=== PATIENT | male | born 1990 | race American Indian/Alaskan Native ===

== ENCOUNTER 2018-01-02 16:08 | Emergency (ER) | payer SELFPAY ==
[2018-01-02] MEDS ORDERED: MORPHINE 4 MG/ML SYR ONE ×2 (17:41→18:22)
[2018-01-02] MEDS ORDERED: ONDANSETRON 4 MG/2 ML VIAL ONE (17:42)
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
[2018-01-02] MEDS ORDERED: HYDROMORPHONE HCL 0.5 MG/0.5 ML INJ ONE (19:29)
[2018-01-02] MEDS ORDERED: DEXAMETHASONE 10 MG/ML VIAL ONE (19:40)
[2018-01-02] MEDS ORDERED: CLINDAMYCIN HCL 150 MG CAP ONE (19:40)
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
== END 2018-01-02 20:11 | disposition home or self-care (01) ==
LOC: ER 16:08
DX: S02.609A Fracture of mandible, unspecified, initial encounter for closed fracture (principal); W50.0XXA Accidental hit or strike by another person, initial encounter; Y93.9 Activity, unspecified; Y92.9 Unspecified place or not applicable
CPT/HCPCS: 70450; 70486; 72125; 76377; 96374; 96375; 99284; J1100; J1170; J2405

== ENCOUNTER 2022-04-05 22:01 | Emergency (ER) | payer SELFPAY ==
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
[2022-04-05] MEDS ORDERED: ACETAMINOPHEN 325 MG TABLET ONE (22:56)
[2022-04-05] MEDS ORDERED: AMOX/K CLAV 875 MG TAB ONE (22:57)
[2022-04-05] MEDS ORDERED: HYDROCODONE/APAP 7.5/325 MG TAB ONE (22:58)
[2022-04-05] MEDS ORDERED: IBUPROFEN 400 MG TAB ONE (22:58)
[2022-04-05 23:51] LABS: SARS-COV-2 RT PCR NEGATIVE (NEGATIVE)
--- NOTE | 2022-04-06 00:10 | EDPHYS ---
Physician Documentation [facility] Name: Kavon Monsalve Age: 31 yrs Sex: Male : 1990 Arrival Date: 04/05/2022 Time: 22:04 Bed 17 Private MD: ED Physician Drake Gao HPI: 04/05 23:00 This 31 yrs old Male presents to ER via Ambulatory with complaints of Toothache. cp 23:00 The patient presents with pain. The problem is located in the left lower jaw. Onset: cp The symptoms/episode began/occurred suddenly, this morning. Duration: The symptoms are continuous, and are steadily getting worse. 23:00 Associated signs and symptoms: Pertinent positives: fever, body aches. Patient also cp reports close contact with COVID-19 positive co-worker. Patient admits to not being vaccinated and would like to be tested. Historical: - Allergies: 22:25 NKDA; kb3 - Home Meds: 22:25 None [Active]; kb3 - PMHx: 22:25 None; kb3 - PSHx: 22:25 None; kb3 - Immunization history:: Adult Immunizations up to date, Client reports having NOT received the Covid vaccine. Last tetanus immunization: up to date. - Social history:: Smoking status: Patient reports the use of cigarette tobacco products, smokes one-half pack cigarettes per day. ROS: 23:05 Constitutional: Positive for body aches, Negative for fever, poor PO intake. cp 23:05 Eyes: Negative for injury, pain, redness, and discharge. cp 23:05 ENT: Positive for dental pain, Negative for drainage from ear(s), ear pain, sore throat, difficulty swallowing, difficulty handling secretions. 23:05 Neck: Negative for pain with movement, pain at rest, stiffness. 23:05 Respiratory: Negative for cough, shortness of breath, wheezing. 23:05 Abdomen/GI: Negative for abdominal pain, vomiting, diarrhea, constipation. 23:05 Skin: Negative for rash. 23:05 Neuro: Negative for altered mental status, dizziness, weakness. 23:05 All other systems are negative. Exam: 23:10 Constitutional: The patient appears in no acute distress, alert, awake, non-toxic, well cp developed, well nourished, in obvious pain, uncomfortable. 23:10 Head/Face: Normocephalic, atraumatic. cp 23:10 Eyes: Periorbital structures: appear normal, Conjunctiva: normal, no exudate, no injection, Sclera: no appreciated abnormality, Lids and lashes: appear normal, bilaterally. 23:10 ENT: External ear(s): are unremarkable, Ear canal(s): are normal, clear, TM's: erythema, that is moderate, bilaterally, Nose: is normal, Mouth: Lips: moist, Oral mucosa: pink and intact, moist, Gums: swollen, on the left lower back molar, Tongue: is normal, abscess, is not appreciated, Posterior pharynx: Airway: no evidence of obstruction, patent, Uvula: midline, swelling, is not appreciated, erythema, is not appreciated, exudate, is not appreciated. 23:10 Neck: ROM/movement: is normal, is supple, without pain, no range of motions limitations, no meningismus. 23:10 Chest/axilla: Inspection: normal. 23:10 Cardiovascular: Rate: normal, Rhythm: regular. 23:10 Respiratory: the patient does not display signs of respiratory distress, Respirations: normal, no use of accessory muscles, no retractions, labored breathing, is not present, Breath sounds: are clear throughout, no decreased breath sounds, no stridor, no wheezing. 23:10 Abdomen/GI: Inspection: abdomen appears normal, Palpation: abdomen is soft and non-tender, in all quadrants. 23:10 Skin: cellulitis, is not appreciated, no rash present. 23:10 Neuro: Orientation: to person, place \T\ time. Mentation: is normal, Cerebellar function: is grossly normal, Motor: moves all fours, strength is normal, Sensation: is normal. Vital Signs: 22:24 BP 140 / 85; Pulse 94; Resp 20; Temp 98.6; Pulse Ox 98% ; Weight 111.13 kg; Height 5 kb3 ft. 10 in. (177.80 cm); Pain 10/10; 22:28 BP 127 / 91; Pulse 92; Resp 20 S; Pulse Ox 99% on R/A; ha1 23:20 BP 118 / 83; Pulse 85; Resp 16 S; Pulse Ox 98% on R/A; ha1 04/06 00:20 BP 116 / 80; Pulse 82; Resp 16 S; Pulse Ox 99% on R/A; ha1 04/05 22:24 Body Mass Index 35.15 (111.13 kg, 177.80 cm) kb3 MDM: 04/05 22:25 Patient medically screened. cp 04/06 00:09 Data reviewed: vital signs, nurses notes, lab test result(s). cp 00:09 Differential diagnosis: dental caries, dental abscess, fractured tooth. I considered cp the following discharge prescriptions or medication management in the emergency department Medications were administered in the Emergency Department. See MAR. Test considered but Not performed: Other Details CT facial bones. Care significantly affected by the following Social Determinants of Health: Poor access to healthcare and/or lack of insurance. Counseling: I had a detailed discussion with the patient and/or guardian regarding: the historical points, exam findings, and any diagnostic results supporting the discharge/admit diagnosis, lab results, the need for outpatient follow up, for definitive care, a dentist, to return to the emergency department if symptoms worsen or persist or if there are any questions or concerns that arise at home. Response to treatment: the patient's symptoms have markedly improved after treatment, and as a result, I will discharge patient. 04/05 22:47 Order name: COVID-19/FLU A+B; Complete Time: 00:09 cp Administered Medications: 04/05 22:55 Drug: Ibuprofen 800 mg Route: PO; ha1 23:20 Follow up: Response: No adverse reaction; Pain is decreased ha1 22:56 Drug: Hydrocodone-Acetaminophen (7.5 mg-325 mg) 1 tabs Route: PO; ha1 23:20 Follow up: Response: No adverse reaction; Pain is decreased; RASS: Alert and Calm (0) ha1 22:57 Drug: Tylenol 650 mg Route: PO; ha1 23:20 Follow up: Response: No adverse reaction ha1 22:58 Drug: Augmentin (Amoxicillin-Clavulanate) 875 mg Route: PO; ha1 23:20 Follow up: Response: No adverse reaction ha1 Disposition Summary: 04/06/22 00:09 Discharge Ordered Location: Home cp Problem: new cp Symptoms: have improved cp Condition: Stable cp Diagnosis - Disorder of teeth and supporting structures, unspecified cp - Otitis media, unspecified, bilateral cp Followup: cp - With: Private Physician - When: 1 - 2 days - Reason: Worsening of condition Discharge Instructions: - Discharge Summary Sheet cp - Dental Pain cp - Otitis Media, Adult cp Forms: - Medication Reconciliation Form cp - Thank You Letter cp - Antibiotic Education cp - Prescription Opioid Use cp - Work release form ha1 Prescriptions: - Augmentin 875-125 mg Oral Tablet - take 1 tablet by ORAL route every 12 hours for 10 days; 20 tablet; Refills: 0, cp Product Selection Permitted - Diclofenac Sodium 75 mg Oral Tablet Sustained Release - take 1 tablet by ORAL route 2 times per day; 30 tablet; Refills: 0, Product cp Selection Permitted Signatures: Dispatcher [employer] EDMS Flavio Mchugh PA PA cp Carrol Woodard RN RN ha1 Bailey Pretty RN RN kb3 Corrections: (The following items were deleted from the chart) 04/06 23:55 04/05 23:00 Onset: The symptoms/episode began/occurred suddenly, today, cp cp
--- NOTE | 2022-04-06 00:10 | ER ---
Nurse's Notes [facility] Name: Kavon Monsalve Age: 31 yrs Sex: Male : 1990 Arrival Date: 04/05/2022 Time: 22:04 Bed 17 Private MD: Diagnosis: Disorder of teeth and supporting structures, unspecified;Otitis media, unspecified, bilateral Presentation: 04/05 22:24 Chief complaint: Patient states: sudden onset of left lower jaw and gum pain since kb3 10:30 this morning. Denies injury, carious or broken teeth. Coronavirus screen: Vaccine status: Patient reports being unvaccinated. Client denies travel out of the [place] in the last 14 days. Ebola Screen: Patient negative for fever greater than or equal to 101.5 degrees Fahrenheit, and additional compatible Ebola Virus Disease symptoms Patient denies exposure to infectious person. Patient denies travel to an Ebola-affected area in the 21 days before illness onset. No symptoms or risks identified at this time. Initial Sepsis Screen: Does the patient meet any 2 criteria? No. Patient's initial sepsis screen is negative. Does the patient have a suspected source of infection? No. Patient's initial sepsis screen is negative. Risk Assessment: Do you want to hurt yourself or someone else? Patient reports no desire to harm self or others. Onset of symptoms was April 05, 2022 at 10:30. 22:24 Method Of Arrival: Ambulatory kb3 22:24 Acuity: KATHIE 4 kb3 Triage Assessment: 22:25 General: Appears uncomfortable, Behavior is calm, cooperative. Pain: Complains of pain kb3 in left jaw Pain does not radiate. Pain currently is 10 out of 10 on a pain scale. Quality of pain is described as aching, sharp, throbbing, Pain began suddenly. EENT: Reports pain in left jaw. Historical: - Allergies: 22:25 NKDA; kb3 - Home Meds: 22:25 None [Active]; kb3 - PMHx: 22:25 None; kb3 - PSHx: 22:25 None; kb3 - Immunization history:: Adult Immunizations up to date, Client reports having NOT received the Covid vaccine. Last tetanus immunization: up to date. - Social history:: Smoking status: Patient reports the use of cigarette tobacco products, smokes one-half pack cigarettes per day. Screenin:30 [facility] ED Fall Risk Assessment (Adult) History of falling in the last 3 months, ha1 including since admission No falls in past 3 months (0 pts) Confusion or Disorientation No (0 pts) Intoxicated or Sedated No (0 pts) Impaired Gait No (0 pts) Mobility Assist Device Used No (0 pt) Altered Elimination No (0 pt) Score/Fall Risk Level 0 - 2 = Low Risk Oriented to surroundings, Maintained a safe environment, Educated pt \T\ family on fall prevention, incl call for assistance when getting out of bed. Abuse screen: Denies threats or abuse. Denies injuries from another. Nutritional screening: No deficits noted. Tuberculosis screening: No symptoms or risk factors identified. Assessment: 22:26 General: Appears uncomfortable, Behavior is cooperative. Pain: Complains of pain in ha1 left lower jaw Pain does not radiate. Pain currently is 10 out of 10 on a pain scale. Pain began suddenly, 4 hours ago. Alleviated by medications. Neuro: Level of Consciousness is awake, alert, obeys commands, Oriented to person, place, time, situation. Cardiovascular: Capillary refill < 3 seconds Patient's skin is warm and dry. Respiratory: Reports Airway is patent Respiratory effort is even, unlabored, Respiratory pattern is regular, symmetrical. GI: No signs and/or symptoms were reported involving the gastrointestinal system. Abdomen is flat, non-distended. : No signs and/or symptoms were reported regarding the genitourinary system. EENT:. Derm: Skin is pink, warm \T\ dry. Musculoskeletal: Circulation, motion, and sensation intact. Range of motion: intact in all extremities, Reports body ache. 23:20 Reassessment: Patient and/or family updated on plan of care and expected duration. Pain ha1 level reassessed. Patient is alert, oriented x 3, equal unlabored respirations, skin warm/dry/pink. pain 2/10 Patient states feeling better. 04/06 00:20 Reassessment: Patient and/or family updated on plan of care and expected duration. Pain ha1 level reassessed. Patient is alert, oriented x 3, equal unlabored respirations, skin warm/dry/pink. Patient states feeling better. Patient states symptoms have improved. Vital Signs: 04/05 22:24 BP 140 / 85; Pulse 94; Resp 20; Temp 98.6; Pulse Ox 98% ; Weight 111.13 kg; Height 5 kb3 ft. 10 in. (177.80 cm); Pain 10/10; 22:28 BP 127 / 91; Pulse 92; Resp 20 S; Pulse Ox 99% on R/A; ha1 23:20 BP 118 / 83; Pulse 85; Resp 16 S; Pulse Ox 98% on R/A; ha1 04/06 00:20 BP 116 / 80; Pulse 82; Resp 16 S; Pulse Ox 99% on R/A; ha1 04/05 22:24 Body Mass Index 35.15 (111.13 kg, 177.80 cm) kb3 ED Course: 04/05 22:04 Patient arrived in ED. ag3 22:05 Flavio Mchugh PA is PHCP. cp 22:05 Drake Gao MD is Attending Physician. cp 22:25 Triage completed. kb3 22:25 Arm band placed on right wrist. kb3 22:26 Carrol Woodard, RAAD is Primary Nurse. ha1 22:30 Patient has correct armband on for positive identification. Bed in low position. Call ha1 light in reach. Side rails up X 1. 23:03 COVID-19/FLU A+B Sent. ha1 04/06 00:24 No provider procedures requiring assistance completed. Patient did not have IV access ha1 during this emergency room visit. Administered Medications: 04/05 22:55 Drug: Ibuprofen 800 mg Route: PO; ha1 23:20 Follow up: Response: No adverse reaction; Pain is decreased ha1 22:56 Drug: Hydrocodone-Acetaminophen (7.5 mg-325 mg) 1 tabs Route: PO; ha1 23:20 Follow up: Response: No adverse reaction; Pain is decreased; RASS: Alert and Calm (0) ha1 22:57 Drug: Tylenol 650 mg Route: PO; ha1 23:20 Follow up: Response: No adverse reaction ha1 22:58 Drug: Augmentin (Amoxicillin-Clavulanate) 875 mg Route: PO; ha1 23:20 Follow up: Response: No adverse reaction ha1 Medication: 04/06 00:25 VIS not applicable for this client. ha1 Outcome: 00:09 Discharge ordered by . cp 00:25 Discharged to home ambulatory. ha1 00:25 Condition: stable 00:25 Discharge instructions given to patient, Instructed on discharge instructions, follow up and referral plans. medication usage, Demonstrated understanding of instructions, follow-up care, medications, Prescriptions given X 2. 00:25 Patient left the ED. ha1 Signatures: Flavio Mchugh PA PA cp Gomez, Alice ag3 Carrol Woodard RN RN ha1 Bailey Pretty RN RN kb3 Corrections: (The following items were deleted from the chart) 04/05 23:04 22:26 Respiratory: Airway is patent Respiratory effort is even, unlabored, Respiratory ha1 pattern is regular, symmetrical, ha1 23:04 22:26 Musculoskeletal: Circulation, motion, and sensation intact. Range of motion: ha1 intact in all extremities, ha1
[2022-04-06 00:42] VITALS: TEMP 98.6
[2022-04-06 00:45] VITALS: BP 116/80; O2SAT 99
== END 2022-04-06 00:25 | disposition home or self-care (01) ==
LOC: ER 22:01
DX: H66.93 Otitis media, unspecified, bilateral (principal); K08.9 Disorder of teeth and supporting structures, unspecified; F17.210 Nicotine dependence, cigarettes, uncomplicated; Z20.822 Contact with and (suspected) exposure to COVID-19
CPT/HCPCS: 0240U; 99283

== ENCOUNTER 2022-04-28 02:00 | Emergency (ER) | payer SELFPAY ==
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
--- NOTE | 2022-04-28 02:35 | EDPHYS ---
Physician Documentation [facility] Name: Kavon Monsalve Age: 31 yrs Sex: Male : 1990 Arrival Date: 04/28/2022 Time: 02:04 Bed 15 Private MD: ED Physician Flavio Holm HPI: 04/28 02:29 This 31 yrs old Male presents to ER via Unassigned with complaints of Anxiety. jo 02:29 The patient presents with a history of heart racing. Context: The symptoms occur at jo rest. Onset: The symptoms/episode began/occurred just prior to arrival. Duration: The patient or guardian reports a single episode, that is still ongoing. Modifying factors: The symptoms are aggravated by. Associated signs and symptoms: The patient has no apparent associated signs or symptoms. Severity of symptoms: At their worst the symptoms were mild in the emergency department the symptoms are unchanged. The patient has not experienced similar symptoms in the past. Historical: - Allergies: 02:33 NKDA; as6 - Home Meds: 02:33 None [Active]; as6 - PMHx: 02:33 Anxiety; as6 - PSHx: 02:33 None; as6 - Immunization history:: Client reports having NOT received the Covid vaccine. - Social history:: Smoking status: Reported history of juuling and/or vaping. - Family history:: not pertinent. ROS: 02:29 Constitutional: Negative for fever, chills, and weight loss, Eyes: Negative for injury, jo pain, redness, and discharge, ENT: Negative for injury, pain, and discharge, Neck: Negative for injury, pain, and swelling, Respiratory: Negative for shortness of breath, cough, wheezing, and pleuritic chest pain, Abdomen/GI: Negative for abdominal pain, nausea, vomiting, diarrhea, and constipation, Back: Negative for injury and pain, : Negative for injury, bleeding, discharge, and swelling, MS/Extremity: Negative for injury and deformity, Skin: Negative for injury, rash, and discoloration, Neuro: Negative for headache, weakness, numbness, tingling, and seizure. 02:29 Cardiovascular: Positive for palpitations. Exam: 02:29 Constitutional: This is a well developed, well nourished patient who is awake, alert, jo and in no acute distress. Head/Face: Normocephalic, atraumatic. Eyes: Pupils equal round and reactive to light, extra-ocular motions intact. Lids and lashes normal. Conjunctiva and sclera are non-icteric and not injected. Cornea within normal limits. Periorbital areas with no swelling, redness, or edema. ENT: Nares patent. No nasal discharge, no septal abnormalities noted. Tympanic membranes are normal and external auditory canals are clear. Oropharynx with no redness, swelling, or masses, exudates, or evidence of obstruction, uvula midline. Mucous membranes moist. Neck: Trachea midline, no thyromegaly or masses palpated, and no cervical lymphadenopathy. Supple, full range of motion without nuchal rigidity, or vertebral point tenderness. No Meningismus. Chest/axilla: Normal chest wall appearance and motion. Nontender with no deformity. No lesions are appreciated. Respiratory: Lungs have equal breath sounds bilaterally, clear to auscultation and percussion. No rales, rhonchi or wheezes noted. No increased work of breathing, no retractions or nasal flaring. Abdomen/GI: Soft, non-tender, with normal bowel sounds. No distension or tympany. No guarding or rebound. No evidence of tenderness throughout. Back: No spinal tenderness. No costovertebral tenderness. Full range of motion. Male : Normal genitalia with no discharge or lesions. Skin: Warm, dry with normal turgor. Normal color with no rashes, no lesions, and no evidence of cellulitis. MS/ Extremity: Pulses equal, no cyanosis. Neurovascular intact. Full, normal range of motion. Neuro: Awake and alert, GCS 15, oriented to person, place, time, and situation. Cranial nerves II-XII grossly intact. Motor strength 5/5 in all extremities. Sensory grossly intact. Cerebellar exam normal. Normal gait. Psych: Awake, alert, with orientation to person, place and time. Behavior, mood, and affect are within normal limits. 02:29 Cardiovascular: Rate: normal, Rhythm: regular, Pulses: Pulses are 4+ in bilateral radial, brachial, femoral, popliteal, posterior tibial and and dorsalis pedis arteries.. Heart sounds: normal, normal S1and S2, no S3 or S4, no murmur, no rub, no gallop, Edema: is not appreciated, JVD: is not appreciated. Vital Signs: 02:34 BP 149 / 85; Pulse 99; Resp 18 S; Temp 98.4(O); Pulse Ox 100% on R/A; Weight 106.59 kg as6 (R); Height 5 ft. 10 in. (177.80 cm) (R); Pain 0/10; 02:34 Body Mass Index 33.72 (106.59 kg, 177.80 cm) as6 MDM: 02:25 Patient medically screened. jo 02:33 Differential diagnosis: arrythmia, dehydration, stress disorder. Data reviewed: vital jo signs, nurses notes. Consideration of Admission/Observation Patient was admitted/placed on observation. I considered the following discharge prescriptions or medication management in the emergency department Medications were administered in the Emergency Department. See MAR. Test considered but Not performed: EKG: ekg, labs, cxr. Care significantly affected by the following chronic conditions: none. Administered Medications: 02:40 Drug: Ativan (LORazepam) 2 mg Route: PO; as6 02:42 Follow up: Response: No adverse reaction as6 Disposition Summary: 04/28/22 02:35 Discharge Ordered Location: Home jo Problem: new jo Symptoms: have improved jo Condition: Stable jo Diagnosis - Anxiety disorder, unspecified jo - Palpitations jo Followup: jo - With: Private Physician - When: 2 - 3 days - Reason: Recheck today's complaints, Continuance of care, Re-evaluation by your physician Discharge Instructions: - Discharge Summary Sheet jo - Palpitations, [id number] jo - Managing Anxiety, Adult jo Forms: - Medication Reconciliation Form jo - Thank You Letter jo - Antibiotic Education jo - Prescription Opioid Use jo - Work release form as6 Prescriptions: - Benadryl 25 mg Oral Capsule - take 1 capsule by ORAL route every 6 hours As needed; 30 tablet; Refills: 0, jo Product Selection Permitted Signatures: Flavio Holm MD MD cha Slawson, Ashby RN RN as6
--- NOTE | 2022-04-28 02:35 | ER ---
Nurse's Notes [facility] Name: Kavon Monsalve Age: 31 yrs Sex: Male : 1990 Arrival Date: 04/28/2022 Time: 02:04 Bed 15 Private MD: Diagnosis: Anxiety disorder, unspecified;Palpitations Presentation: 04/28 02:34 Chief complaint: Patient states: "I have anxiety and I drank an energy drink at work as6 and it made it worse". Coronavirus screen: At this time, the client does not indicate any symptoms associated with coronavirus-19. Ebola Screen: No symptoms or risks identified at this time. Initial Sepsis Screen: Does the patient meet any 2 criteria? No. Patient's initial sepsis screen is negative. Does the patient have a suspected source of infection? No. Patient's initial sepsis screen is negative. Risk Assessment: Do you want to hurt yourself or someone else? Patient reports no desire to harm self or others. Onset of symptoms was April 28, 2022. 02:34 Acuity: KATHIE 4 as6 02:34 Method Of Arrival: Ambulatory as6 Historical: - Allergies: 02:33 NKDA; as6 - Home Meds: 02:33 None [Active]; as6 - PMHx: 02:33 Anxiety; as6 - PSHx: 02:33 None; as6 - Immunization history:: Client reports having NOT received the Covid vaccine. - Social history:: Smoking status: Reported history of juuling and/or vaping. - Family history:: not pertinent. Screenin:36 [facility] ED Fall Risk Assessment (Adult) Score/Fall Risk Level 0 - 2 = Low Risk. Abuse as6 screen: Denies threats or abuse. Denies injuries from another. Nutritional screening: No deficits noted. Tuberculosis screening: No symptoms or risk factors identified. Assessment: 02:35 General: Appears in no apparent distress. Behavior is cooperative, anxious. Pain: as6 Denies pain. Neuro: Level of Consciousness is awake, alert, obeys commands, Oriented to person, place, time, situation. Cardiovascular: Capillary refill < 3 seconds Patient's skin is warm and dry. Respiratory: Respiratory effort is even, unlabored, Respiratory pattern is regular, symmetrical. Vital Signs: 02:34 BP 149 / 85; Pulse 99; Resp 18 S; Temp 98.4(O); Pulse Ox 100% on R/A; Weight 106.59 kg as6 (R); Height 5 ft. 10 in. (177.80 cm) (R); Pain 0/10; 02:34 Body Mass Index 33.72 (106.59 kg, 177.80 cm) as6 ED Course: 02:04 Patient arrived in ED. 02:25 Flavio Holm MD is Attending Physician. jo 02:28 Christopher Yousif, RN is Primary Nurse. 6 02:28 Arm band placed on. as6 02:35 Triage completed. as6 02:36 Bed in low position. Call light in reach. as6 02:36 No provider procedures requiring assistance completed. Patient did not have IV access as6 during this emergency room visit. Administered Medications: 02:40 Drug: Ativan (LORazepam) 2 mg Route: PO; as6 02:42 Follow up: Response: No adverse reaction as6 Medication: 02:36 VIS not applicable for this client. as6 Outcome: 02:35 Discharge ordered by . 02:36 Condition: stable as6 02:42 Discharged to home ambulatory. as6 02:42 Discharge instructions given to patient, Instructed on discharge instructions, follow up and referral plans. medication usage, Demonstrated understanding of instructions, follow-up care, medications, Prescriptions given X 1. 02:43 Patient left the ED. as6 Signatures: Flavio Holm MD MD cha Alexander, Jessica 2 Christopher Yousif, RN RN as6
[2022-04-28] MEDS ORDERED: LORAZEPAM 1 MG TABLET ONE (02:43)
[2022-04-28 02:49] VITALS: BP 149/85; TEMP 98.4; O2SAT 100
== END 2022-04-28 02:43 | disposition home or self-care (01) ==
LOC: ER 02:00
DX: F41.9 Anxiety disorder, unspecified (principal); R00.2 Palpitations

== ENCOUNTER 2022-05-18 19:09 | Emergency (ER) | payer SELFPAY ==
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
[2022-05-18 20:26] LABS: SARS-COV-2 RT PCR NEGATIVE (NEGATIVE)
[2022-05-18] MEDS ORDERED: BENZONATATE 100 MG CAP PO ONE (20:46)
--- NOTE | 2022-05-18 21:27 | ER ---
Nurse's Notes [facility] Name: Kavon Monsalve Age: 31 yrs Sex: Male : 1990 Arrival Date: 05/18/2022 Time: 19:10 Bed DX3 Private MD: Diagnosis: Cough Presentation: 05/18 19:22 Chief complaint: Patient states: My nose keeps running and i am coughing up mucus for jh5 two days; I had a fever earlier but I didn't check it. Coronavirus screen: Vaccine status: Patient reports being unvaccinated. Client denies travel out of the [place] in the last 14 days. Ebola Screen: Patient negative for fever greater than or equal to 101.5 degrees Fahrenheit, and additional compatible Ebola Virus Disease symptoms Patient denies exposure to infectious person. Patient denies travel to an Ebola-affected area in the 21 days before illness onset. Initial Sepsis Screen: Does the patient meet any 2 criteria? No. Patient's initial sepsis screen is negative. Does the patient have a suspected source of infection? No. Patient's initial sepsis screen is negative. Risk Assessment: Do you want to hurt yourself or someone else? Patient reports no desire to harm self or others. Onset of symptoms was May 17, 2022. 19:22 Method Of Arrival: Ambulatory [facility] 19:22 Acuity: KATHIE 3 jh5 Triage Assessment: 19:24 General: Appears in no apparent distress. uncomfortable, well groomed, well developed, 5 Behavior is calm, cooperative, appropriate for age. Pain: Denies pain. Historical: - Allergies: 19:24 NKDA; jh5 - PMHx: 19:24 Anxiety; jh5 - Immunization history:: Adult Immunizations up to date. - Social history:: Smoking status: Patient reports the use of cigarette tobacco products, denies chronic smoking, but will smoke occasionally, smokes one-half pack cigarettes per day. Screenin:11 [facility] ED Fall Risk Assessment (Adult) History of falling in the last 3 months, kd3 including since admission No falls in past 3 months (0 pts) Confusion or Disorientation No (0 pts) Intoxicated or Sedated No (0 pts) Impaired Gait No (0 pts) Mobility Assist Device Used No (0 pt) Altered Elimination No (0 pt) Score/Fall Risk Level 0 - 2 = Low Risk Maintained a safe environment. Abuse screen: Denies threats or abuse. Denies injuries from another. Nutritional screening: No deficits noted. Tuberculosis screening: No symptoms or risk factors identified. Assessment: 21:11 General: Appears in no apparent distress. Behavior is calm, cooperative. Neuro: Level kd3 of Consciousness is awake, alert, obeys commands, Oriented to person, place, time, situation. Respiratory: Airway is patent Trachea midline Respiratory effort is even, unlabored, Respiratory pattern is regular, symmetrical. Vital Signs: 19:22 BP 132 / 85; Pulse 85; Resp 18; Temp 98.3; Pulse Ox 97% ; Weight 106.59 kg; Height 5 [facility] ft. 10 in. (177.80 cm); Pain 0/10; 19:22 Body Mass Index 33.72 (106.59 kg, 177.80 cm) [facility] ED Course: 19:10 Patient arrived in ED. 3 19:24 Triage completed. [facility] 19:24 Arm band placed on right wrist. [facility] 19:26 Flavio Mchugh PA is PHCP. cp 19:26 Mike Perkins MD is Attending Physician. cp 19:30 Strep [facility] 19:30 COVID-19/FLU A+B Sent. [facility] 20:39 Davida Martin, RAAD is Primary Nurse. kd3 21:11 Patient has correct armband on for positive identification. kd3 Administered Medications: 20:41 Drug: Tessalon Perle (benzonatate) 200 mg Route: PO; kd3 21:11 Follow up: Response: No adverse reaction kd3 Medication: 21:11 VIS not applicable for this client. kd3 Outcome: 21:26 Discharge ordered by . cp 21:40 Patient left the ED. kd3 Signatures: Flavio Mchugh PA PA cp Gomez, Alice 3 Zahraa Dee RN RN [facility] Davida Martin, RAAD RN 3 Sweetie Wallis [facility]
--- NOTE | 2022-05-18 21:27 | EDPHYS ---
Physician Documentation [facility] Name: Kavon Monsalve Age: 31 yrs Sex: Male : 1990 Arrival Date: 05/18/2022 Time: 19:10 Bed DX3 Private MD: ED Physician Mike Perkins HPI: 05/18 19:35 This 31 yrs old Male presents to ER via Ambulatory with complaints of Cough. cp 19:35 The patient or guardian reports cough, that is intermittent, with productive sputum. cp Onset: The symptoms/episode began/occurred 2 day(s) ago. Severity of symptoms: in the emergency department the symptoms are unchanged, despite home interventions. Associated signs and symptoms: Pertinent positives: fever, rhinorrhea, Pertinent negatives: diarrhea, ear ache, vomiting. Historical: - Allergies: 19:24 NKDA; jh5 - PMHx: 19:24 Anxiety; jh5 - Immunization history:: Adult Immunizations up to date. - Social history:: Smoking status: Patient reports the use of cigarette tobacco products, denies chronic smoking, but will smoke occasionally, smokes one-half pack cigarettes per day. ROS: 19:40 Constitutional: Negative for fever, poor PO intake. cp 19:40 Eyes: Negative for injury, pain, redness, and discharge. cp 19:40 ENT: Negative for drainage from ear(s), ear pain, sore throat, difficulty swallowing, difficulty handling secretions. 19:40 Cardiovascular: Negative for chest pain. 19:40 Respiratory: Positive for cough, Negative for shortness of breath, wheezing. 19:40 Abdomen/GI: Negative for abdominal pain, vomiting, diarrhea, constipation. 19:40 Neuro: Negative for altered mental status, headache, weakness. 19:40 All other systems are negative. Exam: 19:45 Constitutional: The patient appears in no acute distress, alert, awake, non-toxic, well cp developed, well nourished, overweight 19:45 Head/Face: Normocephalic, atraumatic. cp 19:45 Eyes: Periorbital structures: appear normal, Conjunctiva: normal, no exudate, no injection, Sclera: no appreciated abnormality, Lids and lashes: appear normal, bilaterally. 19:45 ENT: External ear(s): are unremarkable, Ear canal(s): are normal, TM's: bulging, is not appreciated, bilaterally, dullness, bilaterally, erythema, is not appreciated, bilaterally, Nose: is normal, nasal drainage, that is minimal, and is seen coming from both nares, Mouth: Lips: moist, Oral mucosa: moist, Posterior pharynx: Airway: no evidence of obstruction, patent, Tonsils: with erythema, no enlargement, no exudate, swelling, is not appreciated, erythema, that is mild, exudate, is not appreciated. 19:45 Neck: ROM/movement: is normal, is supple, without pain, no range of motions limitations, no meningismus, Lymph nodes: no appreciated lymphadenopathy. 19:45 Chest/axilla: Inspection: normal. 19:45 Cardiovascular: Rate: normal, Rhythm: regular. 19:45 Respiratory: the patient does not display signs of respiratory distress, Respirations: normal, no use of accessory muscles, no retractions, labored breathing, is not present, Breath sounds: decreased breath sounds, are not appreciated, + upper airway congestion. wheezing: is not appreciated. 19:45 Abdomen/GI: Exam negative for discomfort, distension, guarding, Inspection: abdomen appears normal. 19:45 Skin: no rash present. Vital Signs: 19:22 BP 132 / 85; Pulse 85; Resp 18; Temp 98.3; Pulse Ox 97% ; Weight 106.59 kg; Height 5 jh5 ft. 10 in. (177.80 cm); Pain 0/10; 19:22 Body Mass Index 33.72 (106.59 kg, 177.80 cm) jh5 MDM: 19:26 Patient medically screened. cp 21:25 Data reviewed: vital signs, nurses notes, lab test result(s). cp 21:25 Differential Diagnosis: Bronchitis Influenza Pharyngitis Otitis Media Viral Syndrome cp Pneumonia. I considered the following discharge prescriptions or medication management in the emergency department Medications were administered in the Emergency Department. See MAR. Test considered but Not performed: X-ray: chest. Counseling: I had a detailed discussion with the patient and/or guardian regarding: the historical points, exam findings, and any diagnostic results supporting the discharge/admit diagnosis, lab results, to return to the emergency department if symptoms worsen or persist or if there are any questions or concerns that arise at home. Special discussion: I discussed with the patient/guardian that the patient's current presentation does not indicate dosing of antibiotics. They should follow-up with their primary care provider and return if the symptoms persist or progress. 05/18 19:26 Order name: COVID-19/FLU A+B; Complete Time: 21:24 [facility] 05/18 21:24 Interpretation: Reviewed. cp 05/18 19:26 Order name: Strep; Complete Time: 21:24 [facility] 05/18 21:24 Interpretation: Reviewed. cp 05/18 20:02 Order name: Throat Culture EDMS Administered Medications: 20:41 Drug: Tessalon Perle (benzonatate) 200 mg Route: PO; kd3 21:11 Follow up: Response: No adverse reaction kd3 Disposition Summary: 05/18/22 21:26 Discharge Ordered Location: Home cp Problem: new cp Symptoms: have improved cp Condition: Stable cp Diagnosis - Cough cp Followup: cp - With: Private Physician - When: 2 - 3 days - Reason: Worsening of condition Discharge Instructions: - Discharge Summary Sheet cp - Cough, Adult cp - Form - Excuse from Work, School, or Physical Activity cp Forms: - Medication Reconciliation Form cp - Thank You Letter cp - Antibiotic Education cp - Prescription Opioid Use cp - School release form kd3 Prescriptions: - Tessalon Perles 100 mg Oral Capsule - take 2 capsule by ORAL route every 8 hours As needed; 30 capsule; Refills: 0, cp Product Selection Permitted Signatures: Dispatcher [employer] Flavio Bailey PA PA cp Rees, Jessica, RN RN jh5 Davida Martin RN RN kd3
[2022-05-18 22:44] VITALS: BP 132/85; TEMP 98.3; O2SAT 97
== END 2022-05-18 21:40 | disposition home or self-care (01) ==
LOC: ER 19:09
DX: R05.9 Cough, unspecified (principal); F17.210 Nicotine dependence, cigarettes, uncomplicated; Z20.822 Contact with and (suspected) exposure to COVID-19
CPT/HCPCS: 0240U; 87070; 87081; 99283